=== PATIENT | female | born 1950 | race Caucasian/White ===

== ENCOUNTER 2019-08-14 11:16 | Inpatient (IN) | payer MEDICARE, OTHER ==
[~2019-08-14] VITALS: Ht 167.6 cm; Wt 96.7 kg
[2019-08-14] MEDS ORDERED: Prozac40 MG PO (11:50)
[2019-08-14] MEDS ORDERED: FERSU300 PO (11:50)
[2019-08-14] MEDS ORDERED: ARNUITY ELLIP100 MCG INH (11:51)
[2019-08-14] MEDS ORDERED: FOLI1 PO (11:51)
[2019-08-14] MEDS ORDERED: FURO40 PO (11:52)
[2019-08-14] MEDS ORDERED: MELA3 PO (11:52)
[2019-08-14] MEDS ORDERED: NADO20 PO (11:53)
[2019-08-14] MEDS ORDERED: Aldactone50 MG PO (11:53)
[2019-08-14] MEDS ORDERED: THERA1 EACH PO (11:53)
[2019-08-14] MEDS ORDERED: VITAMIN B-121000 MC2 PO (11:54)
[2019-08-14] MEDS ORDERED: Thiamine HCl100 MG PO (11:54)
[2019-08-14] MEDS ORDERED: RIFA550T2 PO (11:55)
[2019-08-14] MEDS ORDERED: LACT10SY PO (11:57)
[2019-08-14] MEDS ORDERED: PANT20 PO (11:58)
[2019-08-14] MEDS ORDERED: LISI20 PO (11:58)
[2019-08-14] MEDS ORDERED: GABA100 PO (12:00)
[2019-08-14 12:02] LABS: BASOPHILS ABSOLUTE AUTO 0.08 K/mm3 (0.00-0.23); BASOPHILS PERCENT AUTO 0 % (0-2); EOSINOPHILS ABSOLUTE AUTO 0.01 K/mm3 (0.00-0.68); EOSINOPHILS PERCENT AUTO 0 % (0-6); Hematocrit 25.4 % (33.0-51.0); Hemoglobin 8.4 g/dL (11.5-16.0); IMMATURE GRAN ABSOLUTE AUTO 0.31 K/mm3 (0.00-0.10); IMMATURE GRAN PERCENT AUTO 1 % (0-1); LYMPHOCYTES ABSOLUTE AUTO 0.91 K/mm3 (0.84-5.20); LYMPHOCYTES PERCENT AUTO 3 % (21-46); MONOCYTES ABSOLUTE AUTO 1.53 K/mm3 (0.16-1.47); MONOCYTES PERCENT AUTO 5 % (4-13); Mean Corpuscular HGB 30.8 pg (26.0-34.0); Mean Corpuscular HGB Conc 33.1 g/dL (31.5-36.5); Mean Corpuscular Volume 93 fL (80-100); NEUTROPHILS ABSOLUTE AUTO 29.61 K/mm3 (1.96-9.15); NEUTROPHILS PERCENT AUTO 91 % (41-73); RDW Coefficient Variation 24.2 % (11.7-14.2); RDW Standard Deviation 81.9 fL (35.1-46.3); Red Blood Cell Count 2.73 M/mm3 (3.80-5.20); White Blood Cell Count 32.45 K/mm3 (4.00-11.30)
[2019-08-14 12:04] LABS: Platelet Count 50 K/mm3 (150-400)
[2019-08-14] MEDS ORDERED: Milk Thistle PO (12:06)
[2019-08-14] MEDS ORDERED: OXYC5 PO (12:07)
[2019-08-14 12:15] LABS: Chloride (POC) 89 mmol/L (98-108); Creatinine (POC) 2.5 mg/dL (0.6-1.0); Glucose (ISTAT POC) 81 mg/dL (70-99); Hemoglobin (POC) 8.2 g/dL (12.0-16.0); Potassium (POC) 5.4 mmol/L (3.5-5.5); Sodium (POC) 119 mmol/L (135-148); Total CO2 (POC) 22 mmol/L (21-32)
[2019-08-14 12:16] LABS: Albumin, Blood 1.7 g/dL (3.4-5.0); Albumin/Globulin Ratio 0.5 (0.8-1.8); Bilirubin, Total 8.7 mg/dL (0.1-1.0); Bun/Creatinine Ratio 19.8 (12.0-20.0); Calcium, Blood 7.9 mg/dL (8.5-10.1); Creatinine, Blood 1.97 mg/dL (0.40-1.00); Globulin, Blood 3.7 g/dL (2.2-4.0); Potassium, Blood 5.6 mmol/L (3.5-5.5); Total Protein, Blood 5.4 g/dL (6.4-8.2)
[2019-08-14 12:26] LABS: International Normalized Ratio 1.59; Prothrombin Time Results 16.2 Sec (9.7-11.5)
[2019-08-14] MEDS ORDERED: Pedi-Dri 100,0060 GM TOP (13:42)
[2019-08-14] MEDS ORDERED: FLONASE ALLERG9.9 ML (13:42)
[2019-08-14] MEDS ORDERED: Fleet Enema132 ML PR (13:43)
[2019-08-14] MEDS ORDERED: BISA10S PR (13:43)
[2019-08-14] MEDS ORDERED: Milk Of Ma400 MG/5 M PO (13:44)
[2019-08-14 14:23] LABS: Source, Urine Catheter
[2019-08-14 14:28] LABS: Blood, Urine 2+ (Neg); Glucose Qualitative, Urine Neg (Neg); Ketones, Urine Neg (Neg); Leukocyte Esterase, Urine 2+ (Neg); Nitrite, Urine Neg (Neg); Protein, Urine 1+ (Neg); Urobilinogen, Urine 2+ (Normal)
[2019-08-14 14:45] LABS: Appearance, Urine Hazy (Clear); Bilirubin, Urine 2+ (Neg); Color, Urine Amber (P-Yellow)
[2019-08-14 14:48] LABS: Bacteria Many /hpf; Squamous Epithelial Cells Many /hpf (Few)
--- NOTE | 2019-08-14 17:04 | NUR ---
ASSUMED CARE OF PT- PT ADMITTED THROUGH THE ED, TELEPHONE REPORT RECIEVED FROM ED RN BRANDEE. PT ALERT AND ORIENTED TO SELF AND FAMILY. PT FAMILY ARRIVED IN THE ROOM PRIOR TO THE PT ARRIVAL AND ARE AT THE BEDSIDE. CALLED DR DUNNE AND SHE IS CURRENTLY SPEAKING WITH THE PT AND HER FAMILY. PER THE FAMILY THEY HAVE TALKED ABOUT HOSPICE WITH OTHER DOCTORS AND WERE UNDER THE IMPRESSION THAT HOSPICE MEANT STOPPING ALL CURRENT CHRONIC MEDICATIONS AND THE PT WOULD BE " IN A MONTH VS SIX MONTHS WITHOUT HOSPICE ON CURRENT MEDICATIONS."
--- NOTE | 2019-08-14 19:32 | NUR ---
SHIFT SUMMARY- PT ADMITTED THROUGH THE ED, MOST OF ADMIT COMPLETE, UNABLE TO COMPLETE PT MEDICAL Hx PT IS A POOR HISTORIAN. PT DAUGHTER SHOULD BE COMING IN THIS EVENING AND CAN ANSWER THESE QUESTIONS. PT CURRENTLY SITTING UP IN BED EATING HER LATE DINNER TRAY, FULL LIQUID DIET.
--- NOTE | 2019-08-15 03:19 | NUR ---
POSITIVE BLOOD CULTURE: GRAM POSITIVE COCCI IN CHAIN. PHARMACY NOTIFIED AND [facility]ORES PHARMACIST REPORTS IV ROCEPHIN WILL COVER. HOSPITALIST DR RAMIREZ NOTIFIED AND REPORTS IV ROCEPHIN WILL COVER IT.
--- NOTE | 2019-08-15 03:29 | NUR ---
SHIFT SUMMARY PATIENT HAD POSITIVE BLOOD CULTURE (SEE NOTE). NO ACUTE CHANGES OBSERVED THIS SHIFT. AXOX 3 AND TWO PERSON ASSIST TO BSC. SCHEDULE OXYCODONE 10 MG GIVEN PER EMAR FOR GROIN PAIN. DENIES SOB AND N/V. PIV REMAINS INTACT. NS INFUSING AT 125 mL/HR LITER TWO OF TWO. BP IMPROVED FROM 83/28 TO 115/94. FULL LIQUID DIET. NYSTAIN POWERED ORDERED BY DR MONTES FOR LS GROIN REDNESS AND AFFECTED AREA. DAUGHTER WAS IN TO SEE PATIENT AND REPORTED SHE WOULD BE BACK TO HELP WITH HEALTH HX AND NEVER RETURNED WITH HER CHILDREN. CALL LIGHT IN REACH. BED IN LOWEST POSITION. WILL CONTINUE TO MONITOR UNTIL DAY SHIFT NURSE ASSUMES CARE.
--- NOTE | 2019-08-15 04:30 | NUR ---
BP NOW 138/94 IMPROVED FROM 115/94 START OF SHIFT AND 83/28 FROM LAST SHIFT.
[2019-08-15 04:54] LABS: BASOPHILS ABSOLUTE AUTO 0.01 K/mm3 (0.00-0.23); BASOPHILS PERCENT AUTO 0 % (0-2); EOSINOPHILS ABSOLUTE AUTO 0.04 K/mm3 (0.00-0.68); EOSINOPHILS PERCENT AUTO 1 % (0-6); Hemoglobin 7.6 g/dL (11.5-16.0); IMMATURE GRAN ABSOLUTE AUTO 0.05 K/mm3 (0.00-0.10); IMMATURE GRAN PERCENT AUTO 1 % (0-1); LYMPHOCYTES ABSOLUTE AUTO 0.78 K/mm3 (0.84-5.20); LYMPHOCYTES PERCENT AUTO 12 % (21-46); MONOCYTES ABSOLUTE AUTO 0.49 K/mm3 (0.16-1.47); MONOCYTES PERCENT AUTO 8 % (4-13); Mean Corpuscular HGB Conc 31.7 g/dL (31.5-36.5); NEUTROPHILS ABSOLUTE AUTO 5.08 K/mm3 (1.96-9.15); NEUTROPHILS PERCENT AUTO 79 % (41-73); RDW Coefficient Variation 24.7 % (11.7-14.2); RDW Standard Deviation 87.7 fL (35.1-46.3); Red Blood Cell Count 2.45 M/mm3 (3.80-5.20); White Blood Cell Count 6.45 K/mm3 (4.00-11.30)
[2019-08-15 05:03] LABS: Mean Corpuscular Volume 98 fL (80-100)
[2019-08-15 05:04] LABS: Platelet Count 29 K/mm3 (150-400)
[2019-08-15 05:12] LABS: Albumin, Blood 1.5 g/dL (3.4-5.0); Albumin/Globulin Ratio 0.4 (0.8-1.8); Bun/Creatinine Ratio 21.8 (12.0-20.0); Calcium, Blood 7.5 mg/dL (8.5-10.1); Creatinine, Blood 1.65 mg/dL (0.40-1.00); Globulin, Blood 3.6 g/dL (2.2-4.0); Potassium, Blood 4.8 mmol/L (3.5-5.5); Total Protein, Blood 5.1 g/dL (6.4-8.2)
--- NOTE | 2019-08-15 06:03 | NUR ---
cL PLT 29. HOSPITALIST DR RAMIREZ NOTIFIED. NO INTERVENTION.
--- NOTE | 2019-08-15 07:24 | NUR ---
ASSUMED CARE OF PT- PT MORE ORIENTED THIS MORNING. SODIUM INCREASED TO 128 ON MORNING LABS. BLOOD PRESSURES HAVE SLOWLY INCREASED T/O THE NIGHT. NO S&S OF PAIN OR DISTRESS NOTED AT THIS TIME. BEDSIDE REPORT COMPLETED WITH NIGHT RN BLAKE. PT AWAKE AND PARTICIPATED IN REPORT.
--- NOTE | 2019-08-15 09:30 | NUR ---
MORNING VITALS PT BP WAS UP TO 111/79. AT TIME TO GIVE MORNING MEDICATIONS VS RECHECKED D/T BP MEDS BEING DUE. BP AT THIS TIME BP WAS 73/37. SPOKE TO DR DUNNE AND ALL BP AFFECTING MEDICATIONS WERE HELD, OXY DC'D. SEE EMAR FOR MED ADMINISTRATION.
--- NOTE | 2019-08-15 12:38 | NUR ---
echocardiogram complete
--- NOTE | 2019-08-15 13:20 | NUR ---
NEW ORDER RECIEVED FOR PO MIDODRENE TO INCREASE THE PT BP. BP PRIOR TO ADMINISTRATION WAS 67/46. SPOKE TO DR DUNNE NEW ORDER RECIEVED FOOR IVF AT 125ML/HR. PT IV WAS NOT PATENT SO NEW IV PLACED IN THE RIGHT AC. IVF CURRENTLY RUNNING.
--- NOTE | 2019-08-15 15:00 | NUR ---
[facility] CARE VISIT - Met with pt and her niece, Amy. rounded and spoke with Amy just after I introduced myself. Much time spent discussing pt's wishes and goals of care related to ongoing current treatment and level of care/goals after pt leaves the hospital. Pt has end stage liver disease. She is more awake and alert today per Amy but clearly confused still. She is clear that she wishes Amy to be her primary medical surrogate decision maker. Amy states the secondary medical surrogate decision maker would be the pt's daughter, Ms. Huggins. Pt confirms this. Pt confirms that she would like to return to [facility] on discharge and does not want to return to hospital if her condition worsens. She is agreeable to continuing IV fluids and IV antibiotics for her sepsis at this time as long as those treatments cont to improve her s/s and she does not have ill side effects from them. If she starts to feel worse here she would like to be placed on comfort care. Pt's niece is supportive of pt's wishes and in agreement with plan for Hospice f/u at [facility]. Pt recently moved to our area from [place] because she could no longer live alone as her health was failing. She was hospitalized at [facility] in [place] and discussed Hospice with medical providers there. On d/c from [facility] pt was transferred to [place] but eventually needed more care and was transferred to LTC/ICF at [facility]. Amy states medicaid covers her care there. They had a manager of case in [place] but she is unaware of a specific manager of case at our local APS office. Hospice services and benefits explained to pt/niece. They request [facility] on d/c. Per their request we completed an updated POLST. THis has been signed by the and faxed to our medical records. The original was given to Amy with an extra copy. Copy placed on pt's chart also. Orders entered for criminal justice social worker and Hospice per VO from . Pt reports significant low back and abd pain. She reports some nausea in ams but reports this is improved. She denies headache, sore throat or anxiety at this time. All of abov e reported to RN and new orders obtained for analgesic for pt's pain. Plan to f/u in am and assist with an AD if pt/niece decide to complete that also. Amy lives in the [facility] and appears very attentive to pt. They appear to have a good rapport and great fondness for one another. Amy is very respectful of pt, her wishes and allows her to continue to participate as best she can in the conversation despite her "fuzzy" thought processes due to es liver disease and hepatic encephalopathy. Pt enjoying her niece and great niece's visit.
--- NOTE | 2019-08-15 15:40 | NUR ---
SPOKE TO DR DUNNE- PALLIATIVE CARE CAME AND SAW THE PT AND FAMILY WELL. SPOKE ABOUT HOSPICE ADMISSION. PT REQUESTING PAIN MEDICATION, SPOKE TO DR DUNNE SHE IS AWARE OF THE PT BP 58/20 BY MANUAL BP. PLAN IS FOR PT TO DC ON HOSPICE ON SATURDAY BACK TO [facility]. NEW ORDER FOR 5MG OXYCODONE Q8P. WENT TO SPEAK TO THE PT AND SHE IS CURRENTLY SLEEPING WITH NO S&S OF PAIN. WILL MEDICATE NEEDED FOR COMFORT. PER WE WILL CONTINUE CURRENT TREATMENT BUT WILL NOT DO ANYTHING ADDITIONAL. PT HAS ALREADY RECIEVED MIDODRENE AND IVF WERE RESTARTED WHEN BP WAS LOW AGAIN.
--- NOTE | 2019-08-15 17:52 | NUR ---
SHIFT SUMMARY- PT CONTINUES TO HAVE SEVERE HYPOTENSION ALTHOUGH LAST BP WAS UP TO 90/42. PT HAS REMAINED ALERT T/O THE DAY SLEEPING OFTEN. FAMILY CAME IN TO SEE THE PT, SPOKE TO DR DUNNE AND PALLIATIVE CARE SEE PREVIOUS NOTES OR DETAILS. PT HAS BEEN A 1PA TO [facility] T/O THE DAY. PLAN IS FOR THE PT TO DISCHARGE TO [facility] ON HOSPICE SATURDAY.
--- NOTE | 2019-08-16 03:35 | NUR ---
SHIFT SUMMARY PATIENT HAD NO ACUTE CHANGES OBSERVED. BP 93/42 AT SHIFT CHANGE. AXOX 3 AND ONE ASSIST TO BSC. PIV REMAINS INTACT. NS INFUSING AT 125mL/HR. DENIES PAIN, SOB, AND N/V. PATIENT ABLE TO REST MOST OF THE SHIFT. TAKES MEDICATION WHOLE WITH WATER. CALL LIGHT IN REACH. BED IN LOWEST POSITION. WILL CONTINUE TO MONITOR UNTIL DAY SHIFT NURSE ASSUMES CARE.
[2019-08-16 05:06] LABS: BASOPHILS ABSOLUTE AUTO 0.01 K/mm3 (0.00-0.23); BASOPHILS PERCENT AUTO 0 % (0-2); EOSINOPHILS ABSOLUTE AUTO 0.03 K/mm3 (0.00-0.68); EOSINOPHILS PERCENT AUTO 1 % (0-6); Hematocrit 24.8 % (33.0-51.0); Hemoglobin 7.8 g/dL (11.5-16.0); IMMATURE GRAN ABSOLUTE AUTO 0.05 K/mm3 (0.00-0.10); IMMATURE GRAN PERCENT AUTO 1 % (0-1); LYMPHOCYTES ABSOLUTE AUTO 0.41 K/mm3 (0.84-5.20); LYMPHOCYTES PERCENT AUTO 9 % (21-46); MONOCYTES ABSOLUTE AUTO 0.35 K/mm3 (0.16-1.47); MONOCYTES PERCENT AUTO 7 % (4-13); Mean Corpuscular HGB 31.1 pg (26.0-34.0); Mean Corpuscular HGB Conc 31.5 g/dL (31.5-36.5); Mean Corpuscular Volume 99 fL (80-100); NEUTROPHILS ABSOLUTE AUTO 3.96 K/mm3 (1.96-9.15); NEUTROPHILS PERCENT AUTO 82 % (41-73); RDW Coefficient Variation 24.2 % (11.7-14.2); RDW Standard Deviation 87.6 fL (35.1-46.3); Red Blood Cell Count 2.51 M/mm3 (3.80-5.20); White Blood Cell Count 4.81 K/mm3 (4.00-11.30)
[2019-08-16 05:09] LABS: Platelet Count 39 K/mm3 (150-400)
[2019-08-16 05:22] LABS: Albumin, Blood 1.6 g/dL (3.4-5.0); Albumin/Globulin Ratio 0.4 (0.8-1.8); Bilirubin, Total 5.5 mg/dL (0.1-1.0); Bun/Creatinine Ratio 22.6 (12.0-20.0); Calcium, Blood 7.7 mg/dL (8.5-10.1); Creatinine, Blood 1.06 mg/dL (0.40-1.00); Globulin, Blood 3.8 g/dL (2.2-4.0); Potassium, Blood 4.7 mmol/L (3.5-5.5); Total Protein, Blood 5.4 g/dL (6.4-8.2)
--- NOTE | 2019-08-16 05:37 | NUR ---
cL PLT: 39. TRENDING UP IN EXPECTED DIRECTION. CHARGE NURSE NOTIFIED. LAST PLT: cL 29.
--- NOTE | 2019-08-16 19:35 | NUR ---
SHIFT SUMMARY- PT HAS BEEN SL ALL SHIFT WITH THE EXCEPTION OF IV ABX WITH A 20ML FLUSH. PASSED ON TO NIGHT RN IV IS TO BE SL, NS IS FOR ABX ADMINISTRATION, VITALS HAVE MAINTAINED IN THE 90'S ALL SHIFT RIGHT LUNG SOUNDS A LITTLE WET, DR AWARE IVF STOPPED AT THIS TIME, PASSED ON TO NIGHT ALEN LOZANO. PT ALERT AND NOT ORIENTED. PT DOES NOT SEEM TO UNDERSTAND HER SITUATION. SPOKE WITH HER ABOUT HOSPICE TODAY AND THE PT SAID SHE IS NOT READY FOR THAT YET. PT IS PLANNING TO DISCHARGE AND GO HOME TO LIVE ON HER OWN AFTER STAYING WITH HER FAMILY FOR A SHORT WHILE. SHE DOES NOT SEEM TO BE AWARE OF HER CURRENT HEALTH ISSUES.
--- NOTE | 2019-08-17 03:12 | NUR ---
SHIFT SUMMARY PATIENT HAD NO ACUTE CHANGES OBSERVED THIS SHIFT. PIV REMAINS INTACT AND IV ABX INFUSED. DENIES PAIN, SOB, AND N/V. ONE ASSIST TO BSC. VSS/AFEBRILE. BP 110/48 AT SHIFT CHANGE. REPORTED N/V X ONE AND IV ZOFRAN GIVEN PER EMAR. PATIENT SLEPT ON AND OFF T/O THE SHIFT. CALL LIGHT IN REACH. BED IN LOWEST POSITION. WILL CONTINUE TO MONITOR UNTIL DAY SHIFT NURSE ASSUMES CARE.
[2019-08-17] MEDS ORDERED: CLIN300 PO (09:35)
[2019-08-17] MEDS ORDERED: MIDO5 PO (09:36)
--- NOTE | 2019-08-17 14:48 | NUR ---
PATIENT DISCHARGE: PATIENT DISCHARGE/ FACILITY XFR TO [facility] THIS SHIFT. MEDICATION RECONCILIATION COMPLETED; HARD SCRIPT PROVIDED AT XF FOR CONTROLLED SUBSTANCE. PATIENT DEPARTED MEDICAL FLOOR AT 1433 [facility]IA [facility] WHEELCHAIR. PATIENT DEPARTED [facility] VIA [facility]. REPORT CALLED TO ALEN FISHER, AT [facility].
--- NOTE | 2019-08-17 17:37 | NUR ---
Ms. Hernández was pleasant and open to prayer/senior genetic counselor. she feels better and is looking forward to going back to rehab. She smiles easily and denies fears or concerns. She is being discharged soon.
== END 2019-08-17 14:34 | DRG 871 ==
LOC: ER 11:16 → MEDS 13:04 → PCU 13:04 → MEDS 15:22 → ENPENDDIS 08-17 10:11 → MEDS 08-17 14:34
PROVIDERS: Emergency Medicine; ADMIT Internal Medicine
DX: A40.1 Sepsis due to streptococcus, group B (principal); I33.0 Acute and subacute infective endocarditis; N39.0 Urinary tract infection, site not specified; K76.6 Portal hypertension; N17.9 Acute kidney failure, unspecified; R65.20 Severe sepsis without septic shock; Z66 Do not resuscitate; K70.30 Alcoholic cirrhosis of liver without ascites; E87.6 Hypokalemia; B95.4 Other streptococcus as the cause of diseases classified elsewhere; I95.9 Hypotension, unspecified
CPT/HCPCS: 36415; 71045; 76705; 80047; 80053; 81001; 83605; 85014; 85025; 85610; 86850; 86900; 86901; 87040; 87086; 87184; 93005; 93010; 93306; 94640; 94760; 96361; 96374; 97110; 97163; 97530; 99285-25; C9113; J0696; J2405; J2543; J7030

== ENCOUNTER 2019-08-21 07:55 | Day surgery (SDC) | payer MEDICARE, OTHER ==
[~2019-08-21 07:55] MED LIST: ARNUITY ELLIP100 MCG INH; Aldactone50 MG PO; BISA10S PR; CLIN300 PO; FERSU300 PO; FLONASE ALLERG9.9 ML; FOLI1 PO; FURO40 PO; Fleet Enema132 ML PR; GABA100 PO; LACT10SY PO; LISI20 PO; MELA3 PO; MIDO5 PO; Milk Of Ma400 MG/5 M PO; Milk Thistle PO; NADO20 PO; OXYC5 PO; PANT20 PO; Pedi-Dri 100,0060 GM TOP; Prozac40 MG PO; RIFA550T2 PO; THERA1 EACH PO; Thiamine HCl100 MG PO; VITAMIN B-121000 MC2 PO
== END 2019-08-21 09:20 | disposition home or self-care (01) ==
LOC: ATC 07:55
DX: A41.89 Other specified sepsis (principal); R65.20 Severe sepsis without septic shock; K70.30 Alcoholic cirrhosis of liver without ascites; K76.6 Portal hypertension; F32.9 Major depressive disorder, single episode, unspecified; Z79.899 Other long term (current) drug therapy
CPT/HCPCS: 99211; C1751

== ENCOUNTER 2019-09-02 11:55 | Day surgery (SDC) | payer MEDICARE, OTHER | END 2019-09-02 17:47 | disposition home or self-care (01) | LOC: ATC 11:55 | DX: D69.59 Other secondary thrombocytopenia (principal) | CPT/HCPCS: 36415; 36430; 86850; 86900; 86901; 86923; J7050; P9016 ==

== ENCOUNTER 2019-09-16 22:00 | Inpatient (IN) | payer MEDICARE, OTHER ==
[~2019-09-16] VITALS: Ht 167.6 cm; Wt 100.7 kg
[2019-09-16] MEDS ORDERED: NADO20 PO (22:35)
[2019-09-16] MEDS ORDERED: SODCHL1 PO (22:39)
[2019-09-16] MEDS ORDERED: ALBU3IS INH (22:41)
[2019-09-16 22:42] LABS: BASOPHILS ABSOLUTE AUTO 0.02 K/mm3 (0.00-0.23); BASOPHILS PERCENT AUTO 0 % (0-2); EOSINOPHILS ABSOLUTE AUTO 0.25 K/mm3 (0.00-0.68); EOSINOPHILS PERCENT AUTO 2 % (0-6); Hematocrit 25.7 % (33.0-51.0); Hemoglobin 8.7 g/dL (11.5-16.0); IMMATURE GRAN ABSOLUTE AUTO 0.11 K/mm3 (0.00-0.10); IMMATURE GRAN PERCENT AUTO 1 % (0-1); LYMPHOCYTES ABSOLUTE AUTO 0.99 K/mm3 (0.84-5.20); LYMPHOCYTES PERCENT AUTO 8 % (21-46); MONOCYTES ABSOLUTE AUTO 0.88 K/mm3 (0.16-1.47); MONOCYTES PERCENT AUTO 7 % (4-13); Mean Corpuscular HGB 30.7 pg (26.0-34.0); Mean Corpuscular HGB Conc 33.9 g/dL (31.5-36.5); Mean Corpuscular Volume 91 fL (80-100); Mean Platelet Volume 12.6 fL (9.1-12.4); NEUTROPHILS ABSOLUTE AUTO 10.11 K/mm3 (1.96-9.15); NEUTROPHILS PERCENT AUTO 82 % (41-73); Platelet Count 65 K/mm3 (150-400); RDW Coefficient Variation 16.2 % (11.7-14.2); RDW Standard Deviation 54.2 fL (35.1-46.3); Red Blood Cell Count 2.83 M/mm3 (3.80-5.20); White Blood Cell Count 12.36 K/mm3 (4.00-11.30)
[2019-09-16 22:52] LABS: Source, Urine Clean Catch
[2019-09-16 22:55] LABS: Blood, Urine 4+ (Neg); Glucose Qualitative, Urine Neg (Neg); Ketones, Urine Neg (Neg); Leukocyte Esterase, Urine 1+ (Neg); Nitrite, Urine Neg (Neg); Protein, Urine 1+ (Neg); Specific Gravity, Urine 1.015 (1.003-1.022); Urobilinogen, Urine NORM (Normal)
[2019-09-16 22:59] LABS: Albumin, Blood 1.8 g/dL (3.4-5.0); Albumin/Globulin Ratio 0.4 (0.8-1.8); Bilirubin, Total 2.6 mg/dL (0.1-1.0); Bun/Creatinine Ratio 24.1 (12.0-20.0); Calcium, Blood 7.9 mg/dL (8.5-10.1); Creatinine, Blood 2.49 mg/dL (0.40-1.00); Globulin, Blood 4.2 g/dL (2.2-4.0); Potassium, Blood 5.1 mmol/L (3.5-5.5)
[2019-09-16 23:00] LABS: Appearance, Urine Hazy (Clear); Bilirubin, Urine 1+ (Neg); Color, Urine Amber (P-Yellow)
[2019-09-16 23:01] LABS: Amorphous Light (0-Heavy); Bacteria Mod /hpf; Red Blood Cells, Urine 0-2 /hpf (0-2); Squamous Epithelial Cells Few /hpf (Few)
[2019-09-17 01:52] LABS: International Normalized Ratio 1.4; Prothrombin Time Results 14.4 Sec (9.7-11.5)
[2019-09-17 05:33] LABS: Hematocrit 23.2 % (33.0-51.0); Hemoglobin 7.9 g/dL (11.5-16.0); Mean Corpuscular HGB 30.6 pg (26.0-34.0); Mean Corpuscular HGB Conc 34.1 g/dL (31.5-36.5); Mean Corpuscular Volume 90 fL (80-100); Platelet Count 60 K/mm3 (150-400); RDW Coefficient Variation 16.3 % (11.7-14.2); RDW Standard Deviation 53.8 fL (35.1-46.3); Red Blood Cell Count 2.58 M/mm3 (3.80-5.20); White Blood Cell Count 13.42 K/mm3 (4.00-11.30)
[2019-09-17 05:57] LABS: Albumin, Blood 2.1 g/dL (3.4-5.0); Albumin/Globulin Ratio 0.6 (0.8-1.8); Bilirubin, Total 2.7 mg/dL (0.1-1.0); Bun/Creatinine Ratio 25.1 (12.0-20.0); Calcium, Blood 7.9 mg/dL (8.5-10.1); Creatinine, Blood 2.19 mg/dL (0.40-1.00); Globulin, Blood 3.7 g/dL (2.2-4.0); Potassium, Blood 5.3 mmol/L (3.5-5.5); Total Protein, Blood 5.8 g/dL (6.4-8.2)
--- NOTE | 2019-09-17 11:00 | NUR ---
PATIENT SLEEPING SOUNDLY AT THIS TIME. HAS AWAKENED BRIEFLY WITH CARE THIS AM. ANSWERED ? WALE. MARIAELENA AT BEDSIDE, SPOKE WITH Larry MARMOLEJO RE: COMFORT MEASURES - SHE WILL PASS ON TO AWAIT FURTHER ORDERS.
[2019-09-17 11:42] LABS: Hematocrit 20.8 % (33.0-51.0)
[2019-09-17] MEDS ORDERED: ALBU2.5V5 INH (13:35)
[2019-09-17] MEDS ORDERED: ACET325 PO (13:39)
--- NOTE | 2019-09-17 14:50 | NUR ---
PATIENT COMFORT MEASURES ONLY STATUS PER MARIAELENA GARCIA AND FAMILY AGREEMENT. PATIENT RESTING QUIETLY W/O S/SX DISCOMFORT. NOTIFIED BY LAB OF + BC'S. AWAITING TRANSFER TO MED FLOOR. PIV LFA AND POWER GLIDE LFA D/C'D INTACT, SITES CLEAR. CONT TO MONITOR.
--- NOTE | 2019-09-17 15:00 | NUR ---
Recieved orders to place pt on comfort care from Dr. Mclean. Orders placed. Reviewed goals of care with ying. Per Amy's request, provided her with a mei list of homes in the area. She is concerned that she cannot afford to pay for the service. Encouraged to call and ask about assistance from the homes. Pt appears comfortable. She does not appear to be in pain.
--- NOTE | 2019-09-17 17:24 | NUR ---
Clinical Visit: Visited with nursing. Nurse reports that pt has comfort measures only POLST. Vinayak is at bedside. Spoke with family. Amy is the pt's neice. She has assumed the role of the pt's main decision maker. She helped the pt with POLST form and is aware that pt is very sick. She would like to hear from the doctor that the pt is in failure. She reports extreme anxiety and would like this assurance that this is what she should do. Called and spoke to Dr. Mclean. She is going to see neice and pt to review.
--- NOTE | 2019-09-17 18:39 | NUR ---
SHIFT SUMMARY COMFORT CARE TRANSFER FROM PCU THIS EVENING. PATIENT MEDICATED X 1 FOR PAIN. DENIES NAUSEA AND SHORTNESS OF BREATH. PATIENT PAINFUL WITH MOVEMENT. NIECE AT BEDSIDE. CALL LIGHT IN REACH.
--- NOTE | 2019-09-17 20:26 | NUR ---
2024 COMFORT CARE APPEARS TO BE RESTING COMFORTABLY. NO C/O PAIN/DISCOMFORT. STATED WOULD LIKE A BED BATH WHEN AVAILABLE. FAMILY AT BEDSIDE. BED IN LOWEST POSITION. CALL LIGHT AND BELONGINGS WITHIN REACH. TM.
--- NOTE | 2019-09-17 22:03 | NUR ---
2200 PT MOVED TO ROOM 313 (LARGER ROOM) WITH ALL PERSONAL BELONGINGS AND NIECE AT SIDE.
--- NOTE | 2019-09-17 23:05 | NUR ---
PT UNABLE TO VOID, Benoit FELIZ, RESEARCH CLERK NOTIFIED WITH ORDERS LÓPEZ CATHETER.
[2019-09-17 23:40] LABS: Source, Urine Catheter
[2019-09-17 23:42] LABS: Blood, Urine Neg (Neg); Glucose Qualitative, Urine Neg (Neg); Ketones, Urine 1+ (Neg); Leukocyte Esterase, Urine 1+ (Neg); Nitrite, Urine Neg (Neg); Protein, Urine 2+ (Neg); Specific Gravity, Urine 1.015 (1.003-1.022); Urobilinogen, Urine NORM (Normal)
--- NOTE | 2019-09-17 23:46 | NUR ---
16 Fr.reese catheter placed after ashly care given. aprox. 150cc dk cheli urine obtained. Urine for UA sent. Stat lock in place. Pt tolerated well.
[2019-09-17 23:59] LABS: Appearance, Urine Hazy (Clear); Bilirubin, Urine 1+ (Neg); Color, Urine Amber (P-Yellow)
[2019-09-18] LABS: Amorphous Light (0-Heavy); Bacteria Many /hpf; Red Blood Cells, Urine Not Seen /hpf (0-2); Squamous Epithelial Cells Mod /hpf (Few); Transitional Epithelial Cells Few /hpf (0-Rare)
--- NOTE | 2019-09-18 04:34 | NUR ---
SHIFT SUMMARY: 69 Y/O FEMALE RESTED COMFORTABLY ALL SHIFT WITH NIECE AT SIDE, UNABLE TO VOID, LÓPEZ PLACED, COMFORT CARE PATIENT, ALERT TO PERSON ONLY, FOLLOWING ALL SIMPLE VERBAL COMMANDS, BED ALARM APPLIED, BED LOW POSITION WITH CALL LIGHT AT SIDE.
--- NOTE | 2019-09-18 07:30 | NUR ---
PT SLEEPING AT THIS TIME. NO DISTRESS NOTED.
--- NOTE | 2019-09-18 09:54 | NUR ---
SLEEPING AT THIS TIME.
--- NOTE | 2019-09-18 17:41 | NUR ---
SLEEPING REPOSITIONED
--- NOTE | 2019-09-19 04:21 | NUR ---
SHIFT SUMMARY: 73 Y/O FEMALE ON COMFORT CARE PATIENT RESTING COMFORTABLY IN BED WITH NIECE AT SIDE WHOM IS VERY SUPPORTIVE, LÓPEZ DRAINING DARK YELLOW FLUID, C/O ABD PAIN RATED 6/10 WITH ROXANOL 20MG SL GIVEN X 2 WITH RELIEF FELT, BED ALARM APPLIED, BED LOW POSITION WITH CALL LIGHT AT SIDE, ALERT TO PERSON ONLY.
--- NOTE | 2019-09-19 07:35 | NUR ---
pt resting/sleeping @ this time, no s/s pain/discomfort
--- NOTE | 2019-09-19 14:32 | NUR ---
Comfort care: Pt appears to be resting comfortably. No s/s of distress. Medication reviewed. No family at bedside. Will remain available.
--- NOTE | 2019-09-19 16:06 | NUR ---
SUMMARY PT IS FATIGUED/DROWSY T/O DAY, SLEPT NEARLY ALL SHIFT. SHE AROUSES @ MEAL X'S HOWEVER DECLINED BF & LUNCH, FLUIDS PROVIDED. COMPLETE BEDBATH PROVIDE, LOTION TO DRY SKIN. RENE FRANKS PATENT/DRNG. SHE HAS HAD NO S/S OF PAIN TODAY, SMILES W TX/CARE. CONTINUE TURN PRN, CONTINUE COMFORT CARE.
--- NOTE | 2019-09-19 17:56 | NUR ---
PT NEICE IN TO SPEND THE NOC, UPDATED ON EVENTS OF DAY. PT CONTINUES DROWSY, SOMULENT, UNABLE TO AWAKEN FOR DINNER. CAUTIONED NEICE THAT SHE MUST BE FULLY AWAKE TO GIVE FLUIDS OR FOOD, SHE STATES UNDERSTANDING. EXPLAINED VRE ISO PRECAUTIONS. PT APPEARS IN NO PAIN, NEICE STATES APPEARS COMFORTABLE. HAVE GIVEN NO PRN'S T/O DAY. ATTENDS CDI. COMPOUND COATING MACHINE OFFBEARER WILL PROVIDE ORAL CARE.
--- NOTE | 2019-09-20 06:29 | NUR ---
SHIFT SUMMARY PT IS A 69 Y/O FEMALE, CURRENTLY ON COMFORT CARE. SHE OPENED HER EYES TO VOICES, BUT FELL QUICKLY BACK ASLEEP AND SLEPT COMFORTABLY THROUGH THE NIGHT. PT DID NOT RECEIVE ANY PRN MEDICATIONS DURING THE NIGHT. HER BREATHING WAS SLOWER AND MORE SHALLOW AT TIMES DURING THE NIGHT. PT'S NIECE REMAINED AT BEDSIDE. NO OTHER ACUTE CHANGES IN PT CONDITION NOTED. WILL CONTINUE TO MONTIOR AND TREAT PER EMAR UNTIL HAND OFF TO DAY SHIFT RN.
--- NOTE | 2019-09-20 08:13 | NUR ---
NO S/S PAIN @ ONSET OF SHIFT, PT APPEARS TO BE SLEEPING SOUNDLY W NEICE @ BEDSIDE.
--- NOTE | 2019-09-20 09:30 | NUR ---
PT AROUSES W STIM, OPENS EYES, SMILES HOWEVER NONVERBAL, IMMEDIATELY CLOSES EYES, VERY LETHARGIC. DISCUSSED W SAMMY VILLAVICENCIO @ BEDSIDE S/S PAIN & COMFORT CARE INTERVENTIONS. PT @ X'S MOANING. RESP DEEP SOMEWHAT LABORED, 20/MIN. ROXANOL 20MG GIVEN FOR PAIN/AIR HUNGER/COMFORT CARE. FAMILY STATE SATISFACTION. WILL CONT TO MX.
--- NOTE | 2019-09-20 11:58 | NUR ---
Comfort Care: Pt appears comfortable. No family at bedside at this time. Medications reviewed, appropriate orders, no needs apparent.
--- NOTE | 2019-09-20 15:19 | NUR ---
Patient is lying in bed and unresponsive with Amy he, present. Amy informs me of patient's medical history and her recent placement on comfort care. I conduct a life review of patient, quote inspirational scriptures and provide prayer. Amy voices appreciation for the visit. I will remain available to family.
--- NOTE | 2019-09-20 15:43 | NUR ---
COMFORT CARE CONTINUES. PT CONTINUES TO RESPOND TO NAME, OPENS EYES HOWEVER NONVERBAL, DOES NOT FOLLOW ANY COMMANDS. HER BREATHING HAS BECOME INCREASINGLY LABORED T/O DAY. INCREASING SECRETIONS, HAVE PROVIDED FREQUENT ORAL CARE & SUCTIONING. ATROPINE GTTS GIVEN, SCOPALAMINE PATCH PLACED R EAR. ROXANOL 10-20 MG GIVEN INTERMITTANTLY FOR S/S PAIN & AIR HUNGER. HER NEICE HAS BEEN @ BEDSIDE MOST OF DAY. PALLIATIVE CARE IN TO VISIT THIS AFTERNOON. PASTORAL CARE IN TO MONROE Padron PT/FAMILY. WILL CONTINUE TO MX & PROVIDE COMFORT CARE.
--- NOTE | 2019-09-20 16:50 | NUR ---
RESPIRATONS INCREASINGLY WET/GURGLING, PT AGITATED. EXTENSIVE YONKERS SUCTIONING PROVIDED, PT TURNED TO L SIDE. ATIVAN 1MG SL, ROXANOL 20MG, ATROPINE GTTS GIVEN. AGITATION DECREASED, PT ABLE TO CALM, BREATHING CONTINES WET/GURGLING HOWEVER SOMEWHAT IMPROVED. HER NEICE CONTINUES @ BEDSIDE, SUPPORTIVE, SOOTHING. WILL CONTINUE TO MX & PROVIDE COMFORT CARE.
--- NOTE | 2019-09-21 06:27 | NUR ---
SHIFT SUMMARY PATIENT NEICE AT BEDSIDE OVERNIGHT. PATIENT OPENS EYES TO NAME BUT DOES NOT FOLLOW COMMANDS. TEETH CLENCHED SHUT WHEN ATTEMPTING ORAL CARE OR GIVING MEDS. RENE PERSON. WILL CONTINUE TO MONITOR.
--- NOTE | 2019-09-21 11:29 | NUR ---
Spiritual care visit conducted. Patient is lying in bed and minimally responsive. Patient could answer kaelyn or no to certain question by nodding or shaking her head but she does not respond to all questions. Patient nodded her head affirmingly to having me prayer for her which I gladly did. She did the same when asked if I could read some inspirational Bible verses. I read several Psalms and from Marcos and Fili. Patient did not show any difference in her countenance or body language. Patient would grimace her face and would moan from time to time during my visit. When I asked patient if she was in pain, patient nodded her head affirmingly. I talk with patient's RN who explained that she had just administered pain medications prior to my visit and that if patient continues to be struggling she will call patient's doctor to see what medications might be used to help stay on top of the pain. I will continue to be available to patient and family.
--- NOTE | 2019-09-21 13:50 | NUR ---
Met with Amy this afternoon at Robyn's bedside. Amy is sitting in a recliner chair next to her aunt and holding her hand. Amy states she is doing better and is grateful for all the care and attention they have been receiving. Robyn appears to be resting peacefully. Amy states her dad (Robyn's brother) called and she held the phone to her aunt's ear. Amy states that she thinks her aunt heard her brother on the phone. Amy stated chaplain Espinal has visited with her today and she was grateful for that. No requests at this time. PC will remain available.
--- NOTE | 2019-09-21 16:58 | NUR ---
SHIFT SUMMARY PT WAS VERY PAINFUL THIS AM/EARLY AFTERNOON. THIS RN HAD TO MEDICATE ALMOST EVERY HOUR WITH ROXANOL MULTIPLE TIMES AND X1 OF ATIVAN BEFORE PT STARTED RESTING COMFORTABLY. PT HAS HAD SOME BLEEDING FROM MOUTH BUT UNABLE TO FIND WHERE DUE TO PT CLENCHING TEETH. PT'S NEICE HAS BEEN AT BEDSIDE MOST OF THE DAY. NO DISTRESS AT THIS TIME. PT RESTING COMFORTABLY. WILL REPORT OFF TO ALEN TAVERAS WHO IS ASSUMING CARE OF PT.
--- NOTE | 2019-09-22 06:24 | NUR ---
Shift Summary Patient appeared to rest peacefully for the majority of the night. Sublingual morphine administered for moaning and indications of pain. She is starting to do some gurgling with respirations, however no periods of apnea noted. PRN atropine drops utilized. Positioned for comfort frequently overnight. No PO fluid intake. West output is small and concentrated. Will continue with comfor-focused care.
--- NOTE | 2019-09-22 11:10 | NUR ---
PT LYING HF, LEANING ON PILLOWS TO L SIDE, MOANING DURING SHIFT REPORT. RESPIRATIONS SOUNDING WET. ATTEMPTED TO SUCTION PT, BUT UNSUCCESSFUL IN CLEARING. PT MEDICATED FOR PAIN AND RESTLESSNESS. PT'S SAMMY STAYING IN , AT BS. OFFERED TO REPOSITION PT AT START OF SHIFT, OR WAIT A FEW MINUTES FOR PAIN MEDICATION TO BE EFFECTIVE. SAMMY REQUESTED TO WAIT A FEW MINUTES. PT'S RESPIRATIONS BECAME APNEIC ABOUT 45 MINS AFTER CALMING. SAMMY SAUD, REMAINED AT BS DURING PT'S PASSING. SAUD DECLINED TO HAVE HANK OR ANYONE ELSE CALLED. SAMMY REPORTED THAT NO OTHER FAMILY WOULD BE COMING IN. TOD 0820. PRODUCTION PLANNER SCHEDULER NOTIFIED OF PT'S PASSING 0822. DR PORTILLO NOTIFIED OF PT'S PASSING 0825. SAUD LEFT PHONE NUMBER OF MORTUARY IN [place] THAT FAMILY HAD CHOOSEN. PRODUCTION PLANNER SCHEDULER NOTIFIED. SAMMY TOOK ALL OF PT'S BELONGINGS WITH HER.
--- NOTE | 2019-09-22 11:25 | NUR ---
After of patient, I provided prayer for patient according to her baptism tradition. No one is present in the room with the body.
== END 2019-09-22 08:20 | DRG 871 ==
LOC: ER 22:00 → MEDS 09-17 02:38 → PCU 09-17 02:38 → MEDS 09-17 16:09
PROVIDERS: Emergency Medicine; ADMIT Internal Medicine
DX: A40.8 Other streptococcal sepsis (principal); K76.7 Hepatorenal syndrome; I33.0 Acute and subacute infective endocarditis; N17.9 Acute kidney failure, unspecified; F10.27 Alcohol dependence with alcohol-induced persisting dementia; E87.1 Hypo-osmolality and hyponatremia; K62.5 Hemorrhage of anus and rectum; Z51.5 Encounter for palliative care; I95.9 Hypotension, unspecified; K70.31 Alcoholic cirrhosis of liver with ascites; D63.1 Anemia in chronic kidney disease; I35.0 Nonrheumatic aortic (valve) stenosis; N18.3 Chronic kidney disease, stage 3 (moderate); F32.9 Major depressive disorder, single episode, unspecified
CPT/HCPCS: 36415; 71045; 80053; 81001; 82140; 82272; 83605; 85014; 85018; 85025; 85027; 85610; 87040; 87077; 87086; 87186; 93005; 93010; 94760; 96361; 96365; 99285-25; J0696; J2354; J7030; J7050; J7120; P9046